=== PATIENT | male | born 1945 | race Caucasian/White ===

== ENCOUNTER → 2017-05-10 | Day surgery (SDC) | payer MEDICARE ==
[~2017-05-10] MED LIST: ACETAMINOPHEN 1000 MG/100 ML 100 ML IV ONE; BUPIVACAINE/EPINEPHRINE 0.25% 50 ML VIAL ONE; KETOROLAC TROMETHAMINE 30 MG/ML (IVP) VIAL IV PUSH ONE; LACTATED RINGER'S 1000 ML INJ 1,000 ML ONE; LIDOCAINE 2%/EPINEPHrine PF 1:200,000 20ML SDV ONE; MIDAZOLAM HCL 2 MG/2 ML VIAL ONE; ONDANSETRON HCL 4 MG/2 ML VIAL IV PUSH ONE; PROPOFOL 200 MG/20 ML AMP IV ONE; SODIUM CHLOR 0.9% 250 ML BAG IV ONE; TAMS5CAP PO; VANCOMYCIN HCL 1000 MG VIAL ONE; ceFAZolin INJ 1,000 MG VIAL ONE
--- NOTE | 2017-05-10 16:49 | MP ---
cc: ESTHER CADET M.D., TERRY GIERBOLINI, JOSE DATE OF SURGERY: 05/10/2017 PREOPERATIVE DIAGNOSIS: Right inguinal hernia, reducible, symptomatic. POSTOPERATIVE DIAGNOSIS: Right inguinal hernia, reducible, symptomatic. PROCEDURE: Right inguinal hernia repair. ANESTHESIA LMA. SURGEON Alton Cadet MD. CUSTOMER RELATIONS SPECIALIST: BILL Ponce The CONSUMER LOAN PROCESSOR was present for the entirety of the procedure. Her presence was required for retraction, exposure and resection of important structures. ESTIMATED BLOOD LOSS: Less than 30 mL FLUIDS: 1150 mL Crystalloid COMPLICATIONS: None. DRAINS: None. SPECIMEN: None. PROCEDURE IN DETAIL: The patient was seen in the holding area and the right side marked by the undersigned and confirmed by the patient and his family. He was taken to the operating room and placed on the operating room table in the supine position. After adequate level of laryngeal mask anesthesia was instituted the right groin was shaved, prepped and draped. Time-out was taken confirming the correct patient, site and procedure to be performed. Skin and subcutaneous tissue was infiltrated with local anesthetic and an oblique incision made directly over the defect. Dissection was carried down to the external oblique fascia where further subfascial injections were made. The fascia was incised in the direction of the fibers and the underlying tissue swept free. The iliohypogastric nerve was noted and this was kept in its [place] tissues and all sutures were kept away from the nerve. The spermatic cord structures were brought up on a [place] drain. The patient was noted to have a direct hernia defect and a lipoma of the spermatic cord. The lipoma was reduced into the abdominal cavity. The direct hernia defect was reduced and three 2-0 Prolene sutures were placed to keep the hernia reduced during the repair. A 3 x 6 inch piece of atrium mesh was then brought up and fixed to the pubic tubercle with 2-0 Prolene suture. 2-0 Prolene suture was then run along the shelving edge of the inguinal ligament to complete the lateral edge of the repair. The mesh was slit longitudinally to allow for egress of the cord structures. The mesh was trimmed to size to fit the defect and interrupted 2-0 Prolene sutures were then placed medially. The medial leaf of mesh was then brought over the lateral leaf and transfixed to the inguinal ligament to create a new internal ring. When this was completed 30 mL of 0.25% Marcaine with epinephrine was injected into the subcutaneous tissues and transversalis fascia. The external oblique fascia was then closed with a running 3-0 Vicryl suture. Care was taken to exclude the underlying tissues. The wound was reapproximated with interrupted 3-0 Vicryl suture and the skin closed with 5-0 PDS in a running subcuticular fashion. The wound was dressed with Telfa and Tegaderm. The patient was taken back to the recovery room in stable condition. Sponge, needle and instrument counts were reported be correct. The patient tolerated procedure well. MD AMANDA Newberry/LOW /1:51 PM /4:14 PM
== END | disposition home or self-care (01) ==
LOC: ESDC 09:47
PROVIDERS: ATTEND Surgery Trauma Surgery
DX: K40.90 Unilateral inguinal hernia, without obstruction or gangrene, not specified as recurrent (principal)
CPT/HCPCS: 00830; 49505; C1781; J0131; J0690; J1885; J2250; J2405; J3010; J3370; J7050; J7120